=== PATIENT | male | born 1960 | race Caucasian/White ===

== ENCOUNTER 2021-11-17 07:56 | Outpatient (CLI) | payer BC, SELFPAY ==
[2021-11-17 13:47] LABS: Alanine Aminotransferase* 39 U/L (4-50); Cholesterol* 171 mg/dL (90-199); Triglycerides* 87 mg/dL (40-149)
[2021-11-17 13:48] LABS: HDL Cholesterol* 56 mg/dL (>=40); LDL Cholesterol Calculated 98 mg/dL (<100)
== END 2021-11-17 07:57 | disposition home or self-care (01) ==
PROVIDERS: PCP Family Medicine; Visit Provider Family Medicine
DX: E78.5 Hyperlipidemia, unspecified (principal)
CPT/HCPCS: 80061; 84460

== ENCOUNTER 2022-12-31 07:55 | Outpatient (CLI) | payer BC, SELFPAY | END 2022-12-31 07:56 | disposition home or self-care (01) | LOC: NFLDREF 22:32 | PROVIDERS: PCP Family Medicine; Referring Provider Family Medicine; Visit Provider Family Medicine | DX: E78.5 Hyperlipidemia, unspecified (principal); Z12.5 Encounter for screening for malignant neoplasm of prostate | CPT/HCPCS: 80053; 80061; 84153 ==

== ENCOUNTER 2023-01-29 11:55 | Outpatient (CLI) | payer BC, SELFPAY ==
--- NOTE | 2023-01-29 12:58 | W.ANESCHARGE ---
Anesthesia Charges Start Date/Time Anesthesia Start Date: 01/29/23 Anesthesia Start Time: 12:31 Stop Date/Time Anesthesia Stop Date: 01/29/23 Anesthesia Stop Time: 12:56
--- NOTE | 2023-01-29 13:15 | W.ANESCHARGE ---
Anesthesia Charges Start Date/Time Anesthesia Start Date: 01/29/23 Anesthesia Start Time: 12:31 Stop Date/Time Anesthesia Stop Date: 01/29/23 Anesthesia Stop Time: 12:56
== END 2023-01-29 11:56 | disposition home or self-care (01) ==
LOC: OP CLINIC 11:55
PROVIDERS: PCP Family Medicine; Visit Provider Internal Medicine
DX: Z12.11 Encounter for screening for malignant neoplasm of colon (principal); K62.1 Rectal polyp; K57.30 Diverticulosis of large intestine without perforation or abscess without bleeding; Z86.010 Personal history of colon polyps
CPT/HCPCS: 00811; 45380; 88305; J2704

== ENCOUNTER 2023-03-24 08:07 | Outpatient (CLI) | payer BC, SELFPAY | END 2023-03-24 08:08 | disposition home or self-care (01) | PROVIDERS: PCP Family Medicine; Visit Provider Family Medicine | DX: E78.2 Mixed hyperlipidemia (principal); Z12.5 Encounter for screening for malignant neoplasm of prostate | CPT/HCPCS: 80061; 80076; G0103 ==

== ENCOUNTER 2024-02-03 08:22 | Outpatient (CLI) | payer BC, SELFPAY | END 2024-02-03 08:23 | disposition home or self-care (01) | LOC: NFLDREF 02-04 08:47 | PROVIDERS: PCP Family Medicine; Referring Provider Family Medicine; Visit Provider Family Medicine | DX: E78.5 Hyperlipidemia, unspecified (principal); R97.20 Elevated prostate specific antigen [PSA]; Z12.5 Encounter for screening for malignant neoplasm of prostate | CPT/HCPCS: 80053; 80061; G0103 ==